=== PATIENT | male | born 1990 | race Two or more races ===

== ENCOUNTER 2020-09-15 05:18 | Emergency (ER) | payer OTHER ==
[~2020-09-15] VITALS: Ht 165.1 cm; Wt 77.1 kg
--- NOTE | 2020-09-15 05:35 | NUR ---
Dr. Robb at bedside for MSE
[2020-09-15] MEDS ORDERED: DOXY100T2 PO (05:52)
[2020-09-15] MEDS: DOXYCYCLINE HYCLATE 100 MG TABLET PO ONE (06:00)
[2020-09-15] MEDS: CEFTRIAXONE 500 MG VIAL IM ONE (06:00)
[2020-09-15] MEDS ORDERED: DOXYCYCLINE HYCLATE 100 MG TABLET ONE (06:01)
[2020-09-15] MEDS ORDERED: CEFTRIAXONE 500 MG VIAL ONE (06:02)
--- NOTE | 2020-09-15 06:18 | NUR ---
Patient discharged to home in stable condition. Written and verbal after care instructions given. Patient verbalizes understanding of instructions. Steady gait, no c/o pain or discomfort. A/O x4 Stressed follow up or return to ER for worsening s/s.
[2020-09-15 06:19] VITALS: BP 136/88
== END 2020-09-15 06:20 | disposition home or self-care (01) ==
LOC: ER 05:27
DX: Z20.2 Contact with and (suspected) exposure to infections with a predominantly sexual mode of transmission (principal)
CPT/HCPCS: 87491; 96372; 99283; J0696; J3490; A4663